=== PATIENT | male | born 1955 | race Caucasian/White ===

== ENCOUNTER 2017-03-03 12:54 | Outpatient (CLI) | payer BC, OTHER ==
--- NOTE | 2017-03-03 14:48 | RAD ---
THREE VIEWS OF THE LEFT ANKLE: Date: 03-03-17 History: Left ankle injury. FINDINGS: Ankle mortise is congruent. There is no fracture or dislocation seen. There is subcutaneous soft tis maynor swelling about the ankle. There is suggestion of a small joint effusion. IMPRESSION: 1. Subcutaneous soft tissue swelling with small joint effusion left ankle. 2. No acute fracture visualized. POS: [facility]
== END 2017-03-03 12:55 | disposition home or self-care (01) ==
LOC: NAV RAD 12:54
PROVIDERS: ATTEND Family Medicine
DX: M25.572 Pain in left ankle and joints of left foot (principal); M25.472 Effusion, left ankle; M79.89 Other specified soft tissue disorders